=== PATIENT | female | born 1980 | race Caucasian/White ===

== ENCOUNTER 2020-08-26 21:39 | Emergency (ER) | payer OTHER ==
[~2020-08-26] VITALS: Ht 157.5 cm; Wt 56.2 kg
[2020-08-26] MEDS ORDERED: CELEXA20 MG PO (21:48)
[2020-08-26] MEDS ORDERED: OMEPRAZOLE 20 M20 M1 PO (21:49)
[2020-08-26] MEDS ORDERED: LORATIDINE 10 M10 M1 PO (21:49)
[2020-08-26] MEDS ORDERED: ARMODAFINIL50 MG PO (21:49)
[2020-08-27 01:03] VITALS: BP 118/64
== END 2020-08-27 01:03 | disposition home or self-care (01) ==
LOC: M.ERS 21:39
DX: S43.022A Posterior subluxation of left humerus, initial encounter (principal); Z79.899 Other long term (current) drug therapy; X50.1XXA Overexertion from prolonged static or awkward postures, initial encounter; Y93.89 Activity, other specified; Y92.89 Other specified places as the place of occurrence of the external cause; Y99.9 Unspecified external cause status